=== PATIENT | female | born 1990 | race Caucasian/White ===

== ENCOUNTER 2018-05-04 12:29 | Inpatient (IN) ==
--- NOTE | 2018-05-04 12:57 | OB/GYN History & Physical ---
Date of Encounter: 05/04/18 Time of Encounter: 12:54 Assessment and Plan (1) Oligohydramnios in third trimester Status: Acute Qualifiers: Fetus number: single or unspecified fetus Qualified Code(s): O41.03X0 - Oligohydramnios, third trimester, not applicable or unspecified (2) Decreased movement Status: Acute Qualifiers: Fetus number: single or unspecified fetus Trimester: third trimester Qualified Code(s): O36.8130 - Decreased movements, third trimester, not applicable or unspecified (3) 40 weeks gestation of Status: Acute (4) Encounter for induction of labor Status: Acute History of Present Illness Chief complaint: 40 wk induction for oligohydramnios and decreased movement HPI: Ms. Duff is a 27 year old female G1 at 40 weeks presents to office today for scheduled visit. Patient complaining of decreased movement. Ultrasound performed today shows an MARISOL below 5. Sterile vaginal exam is 1 cm thick and high. Today we discussed induction of labor. Patient understands that it will take some time to get her cervix to change. She understands this completely. She understands it will take at least 2 days. She understands the induction process. We did discuss this today. She is doing well. She is having no other complaints. She has no known drug allergies. She is currently on vitamins. She has no chronic medical conditions. Surgical history is negative. She has no history of abnormal Pap smears, STDs or pelvic infections. She has no history of abnormal breast findings. Socially she denies illicit drug use. She does drink and smoke prior to . Family history significant for diabetes. Past Med Surg Social Fam HX - Past Medical History Medical history: non-contributory Psychiatric history: anxiety, depression - Social History Smoking Status: Never smoker Smokeless Tobacco Status: No Alcohol use: none Drug use: none Obstetrical History - Pregnancies : 1 Medications and Allergies DiphenhydraMINE [Benadryl] 25 mg PO Q8HR PRN #20 capsule 10/28/17 [Rx] GuaiFENesin/Dextromethorphan [Robitussin/DM] 5 ml PO Q6HR PRN #120 syrup [Rx] Zofran 10/28/17 [History] 3 Allergy/AdvReac Type Severity Reaction Status Date / Time levofloxacin [From Levaquin] Allergy Hives Verified 10/28/17 10:02 Review of System OB All systems PM: reviewed and no additional remarkable complaints except as stated Exam - Constitutional Constitutional: well developed, well nourished, no acute distress, average body habitus - HEENT HEENT: PERRL - Neck Neck exam: full ROM - Lungs Respiratory exam: CTAB - Cardiovascular Cardiovascular exam: RRR - Abdomen Abdomen: Present: bowel sounds normal, gravid, non tender - Extremities Extremities exam: full ROM - Vulva Vulva: bilateral: normal - Vagina Vagina: Present: normal moisture - Cervix Dilation: 1 Effacement: 0 Station: -2 - Uterus Uterus exam: Present: normal size Results All other labs normal.
[2018-05-04] MEDS ORDERED: Metoclopramide 10 MG/2 ML VIAL IVP PRN (14:27)
[2018-05-04] MEDS ORDERED: Famotidine 20 MG/2 ML VIAL IVP PRN (14:27)
[2018-05-04] MEDS ORDERED: *HR* Nalbuphine 10 MG/ML AMPUL IVP PRN (14:27)
[2018-05-04] MEDS ORDERED: Naloxone 0.4 MG/ML INJ IVP PRN (14:27)
[2018-05-04] MEDS ORDERED: Ringers Solution, Lactated 1,000 ML IVC SCH (14:30)
[2018-05-04] MEDS ORDERED: miSOPROStol 25 MCG TABLET VG PRN (15:20)
[2018-05-04 15:44] LABS: Basophils % 0.3 %; Eosinophils % 0.3 %; Hematocrit 34.3 % (35.3-44.9); Hemoglobin 11.2 g/dL (11.5-15.4); Lymphocytes # 1.4 K/mcL (0.6-4.6); Lymphocytes % 13.3 %; Mean Corpuscular HGB Conc 32.7 g/dL (31.6-35.5); Mean Corpuscular Hemoglobin 29.2 pg (28.0-33.3); Mean Corpuscular Volume 89.3 fL (83.0-100.0); Monocytes # 0.8 K/mcL (0.0-1.3); Monocytes % 7.1 %; Neutrophils # 8.2 K/mcL (1.6-8.9); Platelet Count 218 K/mcL (140-400); Red Blood Count 3.84 M/mcL (3.82-4.97); Red Cell Distribution Width 13.9 % (11.5-14.5)
[2018-05-04 15:48] LABS: Amphetamine Screen,Urine Negative ng/mL (Cutoff=1000); Barbiturate Screen,Urine Negative ng/mL (Cutoff=200); Benzodiazepines Screen,Urine Negative ng/mL (Cutoff=200); Cannabinoid Screen,Urine Negative ng/mL (Cutoff = 50); Cocaine Screen,Urine Negative ng/mL (Cutoff= 300); Opiate Screen,Urine Negative ng/mL (Cutoff=300); Phencyclidine Screen,Urine Negative ng/mL (Cutoff=25)
--- NOTE | 2018-05-04 16:43 | OB Labor Progress Note ---
Date of Encounter: 05/04/18 Time of Encounter: 16:40 Labor Progress Note - Subjective Subjective: Patient resting in bed. Discussed POC with patient. Patient denies any questions or concerns. - Cervix Cervix: 1/70/-2 - Heart Tones Heart Tones: 125 bpm moderate variability +15x15 accels no decels noted. Cat. 1 tracing - [place]: 1.5-2 min apart - Interventions Interventions: SVE, Lorenzo catheter placed for IOL. 60 cc sterile water placed in lorenzo ballon. Catheter taped to inner thigh for constant pressure. Patient tolerated well. - Plan Plan: Continue labor management Will start low dose pitocin Will notify Dr. Louis of any changes
[2018-05-04] MEDS ORDERED: Oxytocin 20 units/ LR 1000 mL 20 UNIT/1,000 ML BAG IVC SCH (16:45)
[2018-05-04] MEDS ORDERED: Acetaminophen 325 MG TABLET PO PRN (16:53)
[2018-05-04] MEDS: Ondansetron 4 MG/2 ML VIAL IVP PRN (17:10)
[2018-05-04] MEDS ORDERED: Epidural Premix (fent/bupiv) 110 ML EP SCH (17:30)
[2018-05-04] MEDS ORDERED: Lidocaine -MPF 1% 5 ML AMPUL ONE (17:32)
[2018-05-04] MEDS ORDERED: Lidocaine/EPI 1:200k 2% PF 20 ML VIAL ONE (17:46)
--- NOTE | 2018-05-04 20:20 | Anesthesia Evaluation PreOp ---
Date of Encounter: 05/04/18 Time of Encounter: 17:40 - Past History Planned Operation: vale Cardiac History: Denies any Significant Hx Pulmonary History: Denies Any Significant HX RESOLUTION EXPERT History: Denies Any Significant HX Other Medical History: Denies Any Significant HX Anesthesia History: No Prior Anesthetic Complications : Yes Test: Positive Alcohol Use: none Drug use: none Medications and Allergies DiphenhydraMINE [Benadryl] 25 mg PO Q8HR PRN #20 capsule 10/28/17 [Rx] GuaiFENesin/Dextromethorphan [Robitussin/DM] 5 ml PO Q6HR PRN #120 syrup [Rx] Zofran 4 mg PO PRN PRN 10/28/17 [History] Acetaminophen [Extra Strength Non-Aspirin] 1,000 mg PO PRN PRN 05/04/18 [History ] Multivitamin [Flintstones] 2 each PO DAILY 05/04/18 [History] 3 Allergy/AdvReac Type Severity Reaction Status Date / Time levofloxacin [From Levaquin] Allergy Hives Verified 10/28/17 10:02 - Meds/Allergy Pre-op Review Medications Reviewed: Yes Allergies Reviewed: Yes Beta Blockers on Current Med List: No Anesthesia Results - Labs 05/04/18 14:30 Anesthesia Exam - HEENT Pupil (Motor): Pupils equal Mallampati: II Teeth: Normal Oral Opening: Greater than 3 - RESOLUTION EXPERT LOC: Oriented RESOLUTION EXPERT Motor: Normal RUE, Normal LUE, Normal RLE, Normal LLE, Normal Face RESOLUTION EXPERT Sensory: Normal: RUE, LUE, RLE, LLE, Face - Cardiac Rhythm: Regular Murmur: None JVD: No Carotid Bruit: No - Pulmonary Breath Sounds: bilateral Clear Respiratory Effort: Symmetrical Anesthesia Assess/Plan ASA Score: 2 Modified Adriana Scale for Level of Consciousness: Cooperative, oriented, and tranquil Anesthetic Plan: Regional Autologous Blood: No Monitoring Plan: Standard Monitors Anes Supervising Prov Stmt: patient states has severe scoliosis in thoracic and lumbar spine, follows orthopedic surgeon at [place] and routinely goes to chiropractor. Visualization of spine confirms remarkable curvature. Risks elevated for PDPH and explained to patient. She agrees to risk and wishes to continue with epidural placement
--- NOTE | 2018-05-04 20:23 | Anesthesia Procedures ---
Date of Encounter: 05/04/18 Time of Encounter: 17:50 Procedures: Anesthesia - Epidural/Spinal Patient ID/Chart reviewed: Yes Patient examined: Yes OB Eval: : 1 OB Eval: Hx Para: 0 OB Eval: Contractions: Non-stressed pattern Consent Obtained: Yes Site Prep: Aseptic Technique, Sterile prep and drape, Povidone-Iodine 1% Patient position: upright Amount of Local Anesthetic used: 3 Touhy Needle Gauge: 18 Touhy Needle Depth (cm): 6 Catheter Depth at Skin (cm): 12 Test Dose (1.5% Lido + Epi): Volume given (mls): 3 Test Dose Result: Negative Loading Dose Administered: Thru Catheter Infusion Rate (mls/hr): [address]: Tegaderm, Tape Interspace Used: L4-L5 Loss of Resistance (VALENTE): Yes Blood: No CSF: No Paresthesia: No Procedure: epidural placed with ease first attempt. no complications noted. patient states pain is relieved to 0 Vitals + FHT's: stable throughout see nursing notes
[2018-05-04] MEDS ORDERED: *HR* FentaNYL (PF) 100 MCG/2 ML VIAL ONE (23:55)
[2018-05-04] MEDS ORDERED: *HR* Ropivacaine/PF 0.2% 20 ML VIAL ONE (23:55)
[2018-05-05] MEDS: Ondansetron 4 MG/2 ML VIAL IVP PRN (00:03)
[2018-05-05] MEDS ORDERED: EPHEDrine 50 MG/ML VIAL ONE ×2 (01:01→01:11)
[2018-05-05] MEDS ORDERED: Lidocaine -MPF 2% 5 ML VIAL ONE ×2 (07:28→07:57)
[2018-05-05] MEDS ORDERED: *HR* Phenylephrine 10 MG/ML VIAL ONE (07:28)
[2018-05-05] MEDS ORDERED: *HR* Oxytocin 10 UNIT/ML VIAL IM ONE ×2 (07:29→08:08)
--- NOTE | 2018-05-05 07:30 | OB Labor Progress Note ---
Date of Encounter: 05/05/18 Time of Encounter: 07:28 Labor Progress Note - Subjective Subjective: Melody is a 27-year-old female 1 at 40 weeks and 1 day who was scheduled for induction of labor due to oligohydramnios and decreased movement. Patient has not progressed to 6 cm 80% effaced and a -1 station. Patient has had arrest of dilation at 6 cm after her Gray came out. She has made no change management consultant the last 8 hours. Pitocin has been turned off. Patient with recurrent late decelerations. Currently heart rate tracing is category 1. Patient's epidural no longer working. Patient has scoliosis. She is at the point that she wishes a primary section. She does not wish to continue. Surgery was discussed she understands completely and does wish to proceed. - Cervix Cervix: 6/80/-1 - Heart Tones Heart Tones: 150s currently with accelerations. Patient's Pitocin been turned off. Patient was having recurrent late decelerations - Plan Plan: We will proceed with primary section for intolerance to labor and arrest of dilation.
[2018-05-05] MEDS ORDERED: Azithromycin 1,000 MG in D5% in Water 500 ML IVPB ONE (07:47)
[2018-05-05] MEDS ORDERED: *HR* Morphine Sulfate/PF 10 MG/10 ML AMPUL ONE (07:58)
[2018-05-05] MEDS ORDERED: Ringers Solution, Lactated 1,000 ML ONE (08:07)
[2018-05-05] MEDS ORDERED: Dexamethasone 4 MG/ML VIAL ONE (08:10)
[2018-05-05] MEDS ORDERED: Ondansetron 4 MG/2 ML VIAL ONE (08:10)
[2018-05-05] MEDS ORDERED: Ondansetron 4 MG/2 ML VIAL IVP ONE (08:19)
[2018-05-05] MEDS ORDERED: Naloxone 0.4 MG/ML INJ IVP PRN (08:19)
[2018-05-05] MEDS ORDERED: *HR* Promethazine 25 MG/ML VIAL IVP PRN (08:19)
[2018-05-05] MEDS ORDERED: Acetaminophen IV 1,000 MG/100 ML INFUS..BTL IVPB ONE (08:19)
[2018-05-05] MEDS ORDERED: Dexamethasone 4 MG/ML VIAL IVP ONE (08:19)
[2018-05-05] MEDS ORDERED: *HR* Meperidine 25 MG/ML SYRINGE IVP PRN (08:19)
[2018-05-05] MEDS ORDERED: *HR* OxyCODONE Immed Rel 5 MG TABLET PO PRN (08:19)
--- NOTE | 2018-05-05 08:28 | OB/GYN Procedure Note ---
Section - Date of procedure: 05/05/18 Preop diagnosis: arrest of dilation, category 2 FHT tracing Post-op diagnosis: same Procedure: primary low transverse Surgeon: Scott Charles Blood Loss: 500 Was there an switchboard operator assistant present: Yes Gastroenterology Professor: Radha Live Anesthesiologist: Gissel Anegl Manufacturing Technology Analyst: Kye Brown Anesthesia Type: Epidural section complications: none Disposition: Post floor Specimens: Cord blood - (s) Infant A Delivery Date: 05/05/18 Infant Delivery Time: Presentation: vertex Position: OP Gender: Female Viability: Viable Pounds: 7 Ounces: 11 Gram Weight: 3.49 kg at 1 minute: 8 at 5 minutes: 9 Specimens collected: cord blood Placenta: spontaneous - Narrative Narrative: Patient was taken to the operating room after informed consent was obtained. She was placed on table she was then given a bolus of her epidural. Once assured that adequate analgesia was achieved patient was prepped and draped in the usual sterile fashion. A Pfannenstiel incision was then made and carried sharply through the subcutaneous and fatty tissue until the fascial layer was reached. The fascia was then nicked in the midline and incised bilaterally with Davis scissors. It was then dissected vertically for adequate exposure. Rectus abdominis musculature was midline. The peritoneum sharply entered dissected vertically. A bladder blade was placed at the inferior margin of the incision. A bladder flap was then developed. A bladder blade was placed over the bladder flap and a low transverse incision was then made in the lower uterine segment. Fluid was noted to be clear. The was noted be in occiput posterior presentation. The 's head was then delivered without difficulty. cried immediately upon delivery. The rest of the was then delivered. Cord was clamped cut after 60 seconds. The infant was in past nurse in attendance. Cord blood was obtained. Placenta was delivered via uterine massage. Uterine lavage was performed after the uterus was delivered. The uterine incision was then closed with 0 Vicryl suture running locking fashion. 2 [id number]'s were placed for hemostasis. The pelvic cavity was then rinsed through sterile water 2. The fascia was then closed with 0 Vicryl suture running nonlocking fashion. Suprafascial region was rinsed thoroughly with sterile water testing all bleeders cauterized. The skin was closed larry. Patient tolerated procedure well. Estimated blood loss 500 mL
[2018-05-05] MEDS ORDERED: Ringers Solution, Lactated 1,000 ML IVC SCH (08:30)
[2018-05-05] MEDS ORDERED: Metoclopramide 10 MG/2 ML VIAL IVP PRN (11:03)
[2018-05-05] MEDS ORDERED: Sennosides 8.6 MG TABLET PO PRN (11:03)
[2018-05-05] MEDS ORDERED: Ondansetron 4 MG/2 ML VIAL IVP PRN (11:03)
[2018-05-05] MEDS ORDERED: Simethicone 80 MG TAB.CHEW PO PRN (11:03)
--- NOTE | 2018-05-05 15:22 | Anesthesia Evaluation Post Op ---
Date of Encounter: 05/05/18 Time of Encounter: 10:35 - Vital Signs Vital Signs: Vital Signs Temperature 98.5 F 05/05/18 11:04 Pulse Rate 93 05/05/18 11:04 Respiratory Rate 16 05/05/18 11:04 Blood Pressure 100/60 05/05/18 11:04 Temperature 98.4 F 05/05/18 14:03 Pulse Rate 90 05/05/18 14:03 Respiratory Rate 16 05/05/18 14:03 Blood Pressure 94/56 05/05/18 14:03 - Lungs Lungs: Clear Ascult./Percussion - Airway Airway: Non-obstructed - Cardiovascular Regular Rate - Mental Status Mental Status: Alert & Oriented, Answers Appropriately - Pain Pain Scale: 3 Pain Scale used: Numeric (1 - 10) - Nausea Vomiting Nausea Vomiting: Not Present - Hydration Hydration: NPO, Gray catheter - Discharge PostOp Status: Transfer Patient to floor
[2018-05-05] MEDS ORDERED: ceFAZolin 2,000 MG in 0.9 % Sodium Chloride 100 ML IVP SCH (16:00)
[2018-05-05] MEDS: Oxytocin 20 units/ LR 1000 mL 20 UNIT/1,000 ML BAG IVC SCH (17:02)
[2018-05-05] MEDS: Ibuprofen 600 MG TABLET PO PRN (18:39)
[2018-05-06] MEDS: Oxytocin 20 units/ LR 1000 mL 20 UNIT/1,000 ML BAG IVC SCH (01:27)
[2018-05-06] MEDS: Ibuprofen 600 MG TABLET PO PRN ×2 (05:03→17:49)
[2018-05-06 06:20] LABS: Basophils % 0.1 %; Eosinophils % 0.1 %; Hematocrit 24.6 % (35.3-44.9); Immature Granulocytes % 0.8 % (0-4); Lymphocytes # 1.9 K/mcL (0.6-4.6); Lymphocytes % 13.9 %; Mean Corpuscular HGB Conc 32.5 g/dL (31.6-35.5); Mean Corpuscular Volume 89.1 fL (83.0-100.0); Mean Platelet Volume 10.2 fL (9.4-12.4); Monocytes # 0.8 K/mcL (0.0-1.3); Neutrophils # 10.7 K/mcL (1.6-8.9); Platelet Count 163 K/mcL (140-400); Red Blood Count 2.76 M/mcL (3.82-4.97); Red Cell Distribution Width 14.4 % (11.5-14.5); Segmented Neutrophils % 79.1 %
[2018-05-06] MEDS: Prenatal Vit/FA 1 EACH TABLET PO SCH (08:45)
[2018-05-06] MEDS: *HR* OxyCODONE/APAP 5/325 TABLET PO PRN ×3 (09:37→20:35)
--- NOTE | 2018-05-06 11:06 | OB/GYN Progress Note ---
Date of Encounter: 05/06/18 Time of Encounter: 11:04 - Assessment and Plan (1) Oligohydramnios in third trimester Current Visit: No Status: Acute Qualifiers: Fetus number: single or unspecified fetus Qualified Code(s): O41.03X0 - Oligohydramnios, third trimester, not applicable or unspecified (2) Decreased movement Current Visit: No Status: Acute Qualifiers: Fetus number: single or unspecified fetus Trimester: third trimester Qualified Code(s): O36.8130 - Decreased movements, third trimester, not applicable or unspecified (3) 40 weeks gestation of Current Visit: No Status: Acute (4) Encounter for induction of labor Current Visit: No Status: Acute (5) S/P primary low transverse Current Visit: Yes Status: Acute (6) intolerance to labor, delivered, current hospitalization Current Visit: Yes Status: Acute (7) Arrest of dilation, delivered, current hospitalization Current Visit: Yes Status: Acute Subjective - Subjective Principal diagnosis: s/primary Interval history: Melody is a 27-year-old female 1 who presented for induction of labor with decreased movement and oligohydramnios at 40 weeks. Patient was induced progressed approximate 6 cm. Patient had arrest of dilation. Underwent primary section without difficulty. 500 mL blood loss. Postoperatively doing wonderfully. No complaints. Baby breast-feeding well. Pain well controlled with mother. Patient planning on going home tomorrow. Patient reports: appetite normal, voiding normally, pain well controlled, ambulating normally : doing well Objective - Vital Signs Latest vital signs: Vital Signs Temp Pulse Resp BP Pulse Ox 05/06/18 08:53 98.1 F 89 14 99/64 97 05/06/18 04:43 98.0 F 90 16 94/60 94 05/06/18 01:28 98.1 F 97 16 100/61 97 05/05/18 21:00 98.1 F 80 12 101/53 97 05/05/18 14:03 98.4 F 90 16 94/56 Intake and Output 05/05/18 05/06/18 05/06/18 23:59 07:59 15:59 Intake Total 1973 / 1973 1000 / 1000 Output Total 1400 / 1400 400 / 400 500 / 500 Balance 574 / 574 600 / 600 -500 / -500 Intake: IV Fluids 1000 / 1000 Pitocin 20 unit In 1,000 ml @ 1000 / 1000 125 mls/hr IVC .Q8H [facility] Rx#: [id number] Oral 1200 / 1200 Other 774 / 774 Output: Urine 400 / 400 500 / 500 Catheter 1400 / 1400 Other: Meal Breakfast Percent of Meal Consumed 50% Weight 84.2 kg Patient Weight 05/06/18 23:59 Weight 84.2 kg - Exam Lungs: bilateral: normal Extremities: Present: normal Abdomen: Present: normal appearance Incision: Present: normal, intact Uterus: Present: normal - Labs Labs: Laboratory Results - last 24 hr 05/06/18 05:48 WBC 13.6 H RBC 2.76 L Hgb 8.0 L D Hct 24.6 L MCV 89.1 MCH 29.0 MCHC 32.5 RDW 14.4 Plt Count 163 MPV 10.2 Immature Gran % 0.8 Seg Neutrophils % 79.1 Lymphocytes % 13.9 Monocytes % 6.0 Eosinophils % 0.1 Basophils % 0.1 Neutrophils # 10.7 H Lymphocytes # 1.9 Monocytes # 0.8 Eosinophils # 0.0 Basophils # 0.0
[2018-05-07] MEDS: Ibuprofen 600 MG TABLET PO PRN ×2 (02:44→11:04)
[2018-05-07] MEDS: *HR* OxyCODONE/APAP 5/325 TABLET PO PRN ×2 (03:10→08:22)
[2018-05-07] MEDS: Prenatal Vit/FA 1 EACH TABLET PO SCH (08:23)
[2018-05-07 08:32] VITALS: BP 101/72
--- NOTE | 2018-05-07 12:11 | OB/GYN Progress Note ---
Date of Encounter: 05/07/18 Time of Encounter: 12:09 - Assessment and Plan (1) Oligohydramnios in third trimester Current Visit: No Status: Acute Qualifiers: Fetus number: single or unspecified fetus Qualified Code(s): O41.03X0 - Oligohydramnios, third trimester, not applicable or unspecified (2) Decreased movement Current Visit: No Status: Acute Qualifiers: Fetus number: single or unspecified fetus Trimester: third trimester Qualified Code(s): O36.8130 - Decreased movements, third trimester, not applicable or unspecified (3) 40 weeks gestation of Current Visit: No Status: Acute (4) Encounter for induction of labor Current Visit: No Status: Acute (5) S/P primary low transverse Current Visit: Yes Status: Acute (6) intolerance to labor, delivered, current hospitalization Current Visit: Yes Status: Acute (7) Arrest of dilation, delivered, current hospitalization Current Visit: Yes Status: Acute Subjective - Subjective Principal diagnosis: POD2 Interval history: Melody is a 27-year-old female 1 who underwent primary section for category 2 tracing with arrest of dilation at 6-7 cm. Patient underwent section without difficulty. Postoperatively has done very well. She is having no complaints. She feels well. On postoperative day #2 she wishes to go home. She feels great has been up and about ambulating without difficulty. She is urinating well. Patient reports: appetite normal, voiding normally, pain well controlled, ambulating normally [place]: doing well Objective - Vital Signs Latest vital signs: Vital Signs Temp Pulse Resp BP Pulse Ox 05/07/18 08:31 98.1 F 91 16 101/72 98 05/06/18 20:29 97.9 F 96 16 98/50 97 Intake and Output 05/06/18 05/07/18 05/07/18 23:59 07:59 15:59 Intake Total 600 / 600 Output Total 300 / 300 300 / 300 200 / 200 Balance -300 / -300 300 / 300 -200 / -200 Intake: Oral 600 / 600 Output: Urine 300 / 300 300 / 300 200 / 200 Other: Weight 85.548 kg Patient Weight 05/07/18 23:59 Weight 85.548 kg - Exam Lungs: bilateral: normal Extremities: Present: normal Abdomen: Present: normal appearance, soft Incision: Present: normal, dry, intact
--- NOTE | 2018-05-07 12:13 | Discharge Summary ---
Date of Encounter: 05/07/18 Time of Encounter: 12:13 - Discharge Diagnosis (1) Oligohydramnios in third trimester Priority: Secondary Status: Acute Qualifiers: Fetus number: single or unspecified fetus Qualified Code(s): O41.03X0 - Oligohydramnios, third trimester, not applicable or unspecified (2) Decreased movement Priority: Secondary Status: Acute Qualifiers: Fetus number: single or unspecified fetus Trimester: third trimester Qualified Code(s): O36.8130 - Decreased movements, third trimester, not applicable or unspecified (3) 40 weeks gestation of Priority: Secondary Status: Acute (4) Encounter for induction of labor Priority: Secondary Status: Acute (5) S/P primary low transverse Priority: Primary Status: Acute (6) intolerance to labor, delivered, current hospitalization Priority: Secondary Status: Acute (7) Arrest of dilation, delivered, current hospitalization Priority: Secondary Status: Acute - Discharge Medications Prescriptions: OxyCODONE/APAP 5/325 [Percocet 5/325 MG] 1 each PO Q6HR PRN 7 Days #28 tablet PRN Reason: Moderate pain 4-6 Cephalexin [Keflex] 500 mg PO TID 5 Days #15 capsule Home Medications: Multivitamin [Flintstones] 2 each PO DAILY 05/04/18 [History] Cephalexin [Keflex] 500 mg PO TID 5 Days #15 capsule 05/07/18 [Rx] Ferrous Sulfate 325 mg PO DAILY tablet 05/07/18 [Rx] Ibuprofen [Motrin] 600 mg PO Q6HR PRN tablet 05/07/18 [Rx] Mupirocin [Bactroban Oint] 1 appl TP BID PRN tube 05/07/18 [Rx] OxyCODONE/APAP 5/325 [Percocet 5/325 MG] 1 each PO Q6HR PRN 7 Days #28 tablet [Rx] Allergies/Adverse Reactions: 3 Allergy/AdvReac Type Severity Reaction Status Date / Time levofloxacin [From Levaquin] Allergy Hives Verified 10/28/17 10:02 Data Procedures and tests throughout hospitalization: Laboratory Tests 05/04/18 05/04/18 05/06/18 14:30 14:30 05:48 WBC 10.5 13.6 H RBC 3.84 2.76 L Hgb 11.2 L 8.0 L D Hct 34.3 L 24.6 L MCV 89.3 89.1 MCH 29.2 29.0 MCHC 32.7 32.5 RDW 13.9 14.4 Plt Count 218 163 MPV 10.0 10.2 Immature Gran % 1.0 0.8 Seg Neutrophils % 78.0 79.1 Lymphocytes % 13.3 13.9 Monocytes % 7.1 6.0 Eosinophils % 0.3 0.1 Basophils % 0.3 0.1 Neutrophils # 8.2 10.7 H Lymphocytes # 1.4 1.9 Monocytes # 0.8 0.8 Eosinophils # 0.0 0.0 Basophils # 0.0 0.0 Urine Opiates Screen Negative Ur Barbiturates Screen Negative Ur Phencyclidine Scrn Negative Ur Amphetamines Screen Negative U Benzodiazepines Scrn Negative Urine Cocaine Screen Negative U Marijuana (THC) Screen Negative Ur Drug Screen Interp See Below Date of admission: 05/04/18 13:34 Discharging clinician: Scott Louis Anticipated date of discharge: 05/07/18 - Patient Status Disposition: Home, Self-Care Condition: Good Functional capacity at discharge: independent ambulation Overall status at discharge: patient is back to baseline - Discharge Instructions Follow Up With: Sharda Lin, ENGINEERING TECHNICAL ANALYST [Primary Care Provider] - - Diet and Activity Activity: resume usual activities as tolerated Diet: advance to your usual diet Hospital Course BIKE TECHNICIAN Time Attestation: Total time spent providing and/or coordinating discharge services: Exam - Constitutional Vitals: Temp Pulse Resp BP Pulse Ox 98.1 F 91 16 101/72 98 05/07/18 08:31 05/07/18 08:31 05/07/18 08:31 05/07/18 08:31 05/07/18 08:31 General appearance IM: A&O X 3 - Respiratory Respiratory exam: Present: CTAB - Cardiovascular Cardiovascular exam IM: Present: RRR - GI/Abdominal Incision: normal, dry, intact - Uterine Tone: Firm Uterus Position: 3 Fingers Below Umbilicus - Extremities Exam Extremities exam IM: Present: full ROM, normal inspection - Neurological Exam Neurological exam: normal gait, reflexes normal - VTE Reasons for not Prescribing Prophylaxis: Treatment not Indicated - Low risk for VTE Documentation of Mechanical Device: Intermittent pneumatic compression device
== END 2018-05-07 12:35 | disposition home or self-care (01) | DRG 766 ==
LOC: 1NENULAB 13:34 → 1NENUOBS 05-05 10:57
PROVIDERS: ADMIT Obstetrics & Gynecology; ATTEND Obstetrics & Gynecology